=== PATIENT | male | born 1950 | race Caucasian/White ===

== ENCOUNTER 2017-03-05 15:23 | Inpatient (IN) | payer OTHER ==
[~2017-03-05] VITALS: Ht 180.3 cm; Wt 115.0 kg
[~2017-03-05 15:23] MED LIST: BUPR-40; CIPR-173 PO; CLON1TAB3; DIPH2.5T73; ESCI10TA; LIRA18IN2; METF100097; NOR10T; OMEP20TA69; PIOG45TA8; ZOLP-158
[2017-03-05 17:00] LABS: Basophils # (auto) 0 uL; Eosinophils # (auto) 0.1 uL; Eosinophils % (auto) 1.1 % (0.0-7.0); Hematocrit 42.2 % (41.0-53.0); Hemoglobin 13.7 g/dL (13.5-17.5); Lymphocytes # (auto) 0.5 uL; Lymphocytes % (auto) 11.8 % (10.0-50.0); Mean Corpuscular Hgb Conc. 32.6 g/dL (32.0-36.0); Mean Corpuscular Volume 85.9 fL (80.0-100.0); Mean Platelet Volume 8.1 fL (6.9-10.8); Monocytes # (auto) 0.6 uL; Monocytes % (auto) 12.2 % (0.0-12.0); Neutrophils # (auto) 3.4 uL; Neutrophils % (auto) 73.9 % (37.0-80.0); Platelet Count (auto) 182 10^3/uL (140-450); Red Cell Distribution Width 15.1 % (11.8-14.3); White Blood Cell 4.6 10^3/uL (4.4-10.8)
[2017-03-05 17:19] LABS: Albumin 3.4 g/dL (3.4-5.0); Anion Gap 8 (5-15); Aspartate Aminotransferase 27 U/L (15-37); BUN/Creatinine Ratio 14.9; Blood Urea Nitrogen 14 mg/dL (7-18); Calcium 8.5 mg/dL (8.5-10.1); Carbon Dioxide 26 mmol/L (21-32); Chloride 103 mmol/L (98-107); GFR African American 103 mL/min; GFR Non-African American 85 mL/min; Glucose 147 mg/dL (74-106); Potassium 3.9 mmol/L (3.5-5.1); Sodium 137 mmol/L (136-145)
[2017-03-05 17:24] LABS: Alkaline Phosphatase 92 U/L (45-117); Bilirubin, Total 0.5 mg/dL (0.2-1.0); Total Protein 7.4 g/dL (6.4-8.2)
[2017-03-05] MEDS ORDERED: methylPREDNISolone SOD SUCC 125 MG/2 ML VL IV ONE (19:45)
[2017-03-05] MEDS ORDERED: IPRATROPIUM BROM 0.5 MG/2.5ML INH SOL NEB ONE (19:45)
[2017-03-05] MEDS ORDERED: SODIUM CHLORIDE 0.9% 1,000 ML IV ONE (19:45)
[2017-03-05] MEDS ORDERED: LEVOFLOXACIN 750MG 150 ML IV ONE (19:45)
[2017-03-05] MEDS ORDERED: ALBUTEROL SULF 2.5 MG/0.5ML(0.5%) NEB SOLN NEB ONE (19:45)
[2017-03-06] VITALS (8 sets, daily range): BP systolic 125–154; BP diastolic 59–82
[2017-03-06] MEDS ORDERED: DEXTROSE (50%) 50ML SYRG IV PRN (01:45)
[2017-03-06] MEDS ORDERED: ONDANSETRON HCL 4 MG/2 ML VIAL IV PRN (01:45)
[2017-03-06] MEDS ORDERED: methylPREDNISolone SOD SUCC 40 MG/ML VL IV SCH (01:45)
[2017-03-06] MEDS ORDERED: HYDROcodone-ACET 5/325MG TAB PO PRN (01:45)
[2017-03-06 02:22] LABS: BUN/Creatinine Ratio 15.7; Calcium 8.7 mg/dL (8.5-10.1); Potassium 4.5 mmol/L (3.5-5.1)
[2017-03-06 02:48] LABS: Lymphocytes % (auto) 8.2 % (10.0-50.0); Monocytes % (auto) 1.8 % (0.0-12.0); Neutrophils # (auto) 3.5 uL; Nucleated Red Blood Cells % 0.1 %; White Blood Cell 3.9 10^3/uL (4.4-10.8)
[2017-03-06 02:49] LABS: Basophils # (auto) 0 uL; Eosinophils # (auto) 0 uL; Hematocrit 42.1 % (41.0-53.0); Hemoglobin 13.7 g/dL (13.5-17.5); Lymphocytes # (auto) 0.3 uL; Mean Corpuscular Hemoglobin 28.3 pg (28.0-32.0); Mean Corpuscular Hgb Conc. 32.6 g/dL (32.0-36.0); Mean Platelet Volume 8.5 fL (6.9-10.8); Monocytes # (auto) 0.1 uL; Platelet Count (auto) 165 10^3/uL (140-450); Red Cell Distribution Width 15.1 % (11.8-14.3)
[2017-03-06 03:35] LABS: Urine Bilirubin Negative (Negative); Urine Blood Negative /uL (Negative); Urine Color Yellow (Yellow); Urine Glucose 4+ mg/dL (Normal); Urine Ketone 1+ (Negative); Urine Nitrite Negative (Negative); Urine RBC <1 /hpf (0 - 3); Urine Urobilinogen Normal (Negative)
[2017-03-06 04:20] LABS: B-Type Natriuretic Peptide 35.73 pg/mL (0-100)
[2017-03-06 04:26] LABS: Temperature: 21.6 C (20.0-25.0)
[2017-03-06] MEDS ORDERED: TRAZ100T2 PO (05:25)
[2017-03-06] MEDS ORDERED: ALBUAER3 IN (05:25)
[2017-03-06] MEDS ORDERED: MOME200A INH (05:25)
[2017-03-06] MEDS ORDERED: OME20T PO (05:25)
[2017-03-06] MEDS ORDERED: ALOG1TAB5 PO (05:25)
[2017-03-06] MEDS ORDERED: FLUT1SPR5 (05:25)
[2017-03-06] MEDS: ACETAMINOPHEN 500 MG TAB PO PRN ×2 (05:40→21:48)
[2017-03-06] MEDS: DOXYCYCLINE HYC 100MG/250ML 250 ML IV SCH ×2 (05:41→17:52)
[2017-03-06] MEDS ORDERED: INSU1.2I SC (05:51)
[2017-03-06] MEDS: InsuLIN REG 1unit/0.01ml Soln (100units/ml) SC SCH ×4 (06:54→21:59)
[2017-03-06] MEDS: ALBUTEROL SULF 2.5 MG/0.5ML(0.5%) NEB SOLN NEB SCH ×3 (06:56→18:40)
[2017-03-06] MEDS: IPRATROPIUM BROM 0.5 MG/2.5ML INH SOL NEB SCH ×3 (06:56→18:40)
[2017-03-06] MEDS: ACCU-CHEK COMFORT CURVE STRIP VI SCH ×4 (07:14→22:00)
[2017-03-06] MEDS ORDERED: THROAT LOZENGES(CEPASTAT) MT PRN (12:15)
[2017-03-06] MEDS: methylPREDNISolone SOD SUCC 40 MG/ML VL IV SCH ×2 (14:40→19:52)
[2017-03-06] MEDS: BUDESONIDE (INHALATION) 0.5 MG/2 ML NEB NEB SCH (18:40)
[2017-03-06] MEDS: ACETYLCYSTEINE 10 %(100MG/ML) SOL 4ML NEB SCH (18:41)
[2017-03-06] MEDS ORDERED: traZODone HCL 50 MG TAB PO SCH (22:00)
[2017-03-07] MEDS: IPRATROPIUM BROM 0.5 MG/2.5ML INH SOL NEB SCH ×3 (00:32→11:35)
[2017-03-07] MEDS: ACETYLCYSTEINE 10 %(100MG/ML) SOL 4ML NEB SCH ×3 (00:32→11:35)
[2017-03-07] MEDS: ALBUTEROL SULF 2.5 MG/0.5ML(0.5%) NEB SOLN NEB SCH ×3 (00:32→11:35)
[2017-03-07] MEDS: methylPREDNISolone SOD SUCC 40 MG/ML VL IV SCH ×3 (01:15→14:24)
[2017-03-07 04:59] VITALS: BP 105/52
[2017-03-07] MEDS: DOXYCYCLINE HYC 100MG/250ML 250 ML IV SCH (06:22)
[2017-03-07] MEDS: InsuLIN REG 1unit/0.01ml Soln (100units/ml) SC SCH ×2 (06:29→12:05)
[2017-03-07] MEDS: BUDESONIDE (INHALATION) 0.5 MG/2 ML NEB NEB SCH (06:35)
[2017-03-07] MEDS: ACCU-CHEK COMFORT CURVE STRIP VI SCH ×2 (06:55→12:05)
[2017-03-07 07:53] VITALS: BP 127/63
[2017-03-07 12:05] VITALS: BP 122/68
[2017-03-07] MEDS ORDERED: IPR002IS NEB (14:37)
[2017-03-07] MEDS ORDERED: CEPH-37 PO (14:37)
[2017-03-07] MEDS ORDERED: ALB5IS NEB (14:37)
== END 2017-03-07 17:30 | disposition home or self-care (01) | DRG 190 ==
LOC: ER 15:26 → OVERFLOW 15:27 → WEST WING 03-06 04:06
PROVIDERS: ADMIT Nurse Practitioner Family; ATTEND Nurse Practitioner Family
DX: J44.0 Chronic obstructive pulmonary disease with (acute) lower respiratory infection (principal); J18.1 Lobar pneumonia, unspecified organism; Z99.81 Dependence on supplemental oxygen; E66.2 Morbid (severe) obesity with alveolar hypoventilation; J44.1 Chronic obstructive pulmonary disease with (acute) exacerbation; E11.9 Type 2 diabetes mellitus without complications; F32.9 Major depressive disorder, single episode, unspecified; F41.9 Anxiety disorder, unspecified; J20.9 Acute bronchitis, unspecified; K21.9 Gastro-esophageal reflux disease without esophagitis; Z79.4 Long term (current) use of insulin; Z79.899 Other long term (current) drug therapy; Z87.442 Personal history of urinary calculi; Z79.84 Long term (current) use of oral hypoglycemic drugs
CPT/HCPCS: 36415; 71020; 80048; 80053; 81001; 82962; 83036; 83880; 84484; 85025; 87040; 87070; 87205; 93005; 94640; 96365; 96375; 96376; J1815; J1956; J3490

== ENCOUNTER 2019-02-26 12:20 | Inpatient (IN) | payer BC, MEDICARE ==
[~2019-02-26] VITALS: Ht 180.3 cm; Wt 115.2 kg
[~2019-02-26 12:20] MED LIST changes: +ALB5IS NEB; +ALOG1TAB5 PO; -BUPR-40; -CIPR-173 PO; -CLON1TAB3; +CLOTCRE3 EX; -DIPH2.5T73; -ESCI10TA; +FLUT1SPR5; +INSU1.2I SC; +IPR002IS NEB; -LIRA18IN2; -METF100097; +MOME200A INH; -NOR10T; +OME20T PO; -OMEP20TA69; -PIOG45TA8; +TRAZ100T3 PO; -ZOLP-158
[2019-02-26] MEDS ORDERED: cefTRIAXone 1GM/50ML D5W 50 ML IV ONE (13:15)
[2019-02-26 13:28] LABS: Basophils # (auto) 0 uL; Basophils % (auto) 0.7 % (0.0-2.0); Eosinophils # (auto) 0.1 uL; Eosinophils % (auto) 2.1 % (0.0-7.0); Hematocrit 45.3 % (41.0-53.0); Hemoglobin 15.1 g/dL (13.5-17.5); Lymphocytes # (auto) 0.9 uL; Lymphocytes % (auto) 15.5 % (10.0-50.0); Mean Corpuscular Hemoglobin 29.5 pg (28.0-32.0); Mean Corpuscular Hgb Conc. 33.4 g/dL (32.0-36.0); Mean Corpuscular Volume 88.4 fL (80.0-100.0); Monocytes # (auto) 0.8 uL; Monocytes % (auto) 13.7 % (0.0-12.0); Neutrophils # (auto) 3.8 uL; Nucleated Red Blood Cells % 0.1 %; Platelet Count (auto) 217 10^3/uL (140-450); Red Blood Cells 5.13 10^6/uL (4.5-5.90); White Blood Cell 5.6 10^3/uL (4.4-10.8)
[2019-02-26 13:47] LABS: Albumin 3.2 g/dL (3.4-5.0); Calcium 8.8 mg/dL (8.5-10.1); Potassium 4.2 mmol/L (3.5-5.1)
[2019-02-26 13:50] LABS: Bilirubin, Total 0.7 mg/dL (0.2-1.0); Total Protein 7.6 g/dL (6.4-8.2)
[2019-02-26] MEDS ORDERED: MORPHINE SULF INJ 2 MG/ML SYRINGE 1ML IV PRN ×2 (17:30)
[2019-02-26] MEDS ORDERED: ACETAMINOPHEN 500 MG TAB PO PRN (17:30)
[2019-02-26] MEDS ORDERED: ONDANSETRON HCL 4 MG/2 ML VIAL IV PRN (17:30)
[2019-02-26] MEDS ORDERED: HYDROcodone-ACET 5/325MG TAB PO PRN (17:30)
[2019-02-26] MEDS ORDERED: DEXTROSE (50%) 50ML SYRG IV PRN (17:30)
[2019-02-26] MEDS ORDERED: NITROGLYCERIN 0.4 MG SL TAB SL PRN (17:30)
[2019-02-26] MEDS: AZITHROMYCIN 500MG/ 250ML 250 ML IV SCH (18:31)
[2019-02-26] MEDS: ALBUTEROL SULF 2.5 MG/0.5ML(0.5%) NEB SOLN NEB SCH (18:44)
[2019-02-26] MEDS: BUDESONIDE (INHALATION) 0.5 MG/2 ML NEB NEB SCH (18:44)
[2019-02-26] MEDS: IPRATROPIUM BROM 0.5 MG/2.5ML INH SOL NEB SCH (18:44)
--- NOTE | 2019-02-26 18:46 | NUR ---
Respiratory note: AT BEDSIDE IN ER BED 14 FOR MED NEB TX. BS ARE COURSE WHEEZES IN RIGHT LUNG PERAZA DIMINISHED CLEAR ON LEFT. TX GIVEN VIA MASK. PT TOLERATING TX WELL. AT BEDSIDE.
[2019-02-26 19:27] VITALS: BP 131/70
[2019-02-26 21:10] VITALS: BP 137/61
--- NOTE | 2019-02-26 21:10 | NUR ---
Telemetry admit from ER KAREEN COLON admitted to Telemetry unit after SBAR received. Patient oriented to Liat Deng RN primary RN, unit, room, bed, and unit policies regarding patient care and visiting hours. Patient now on continuous telemetry monitoring, tele box # [id number] and telemetry reading on arrival to unit is SINUS RHYTHM. Patient placed on bedside oxygen, weighed by bedscale and encouraged to call if they need something. All questions and concerns addressed, patient verbalized understanding. Bed is in lowest locked position with bed rails up x2 and call light is within reach of the patient. Urinal is at the bedside.
--- NOTE | 2019-02-26 21:30 | NUR ---
Unable to obtains med reconciliation: Instructed patient to have bring in his list of medications sometime in the day for the nurse to record doses for the doctor. Patient verbalized understanding and is to notify to bring home med list tomorrow.
[2019-02-26 21:44] VITALS: BP 137/61
[2019-02-26] MEDS: GABAPENTIN 300 MG CAP PO SCH (21:54)
[2019-02-26] MEDS: ACCU-CHEK COMFORT CURVE STRIP VI SCH (21:54)
[2019-02-26] MEDS: InsuLIN REG 1unit/0.01ml Soln (100units/ml) SC SCH (21:56)
[2019-02-26] MEDS: guaiFENesin-CODEINE Liq 5 ML UD PO PRN (21:58)
--- NOTE | 2019-02-26 23:00 | NUR ---
Respiratory note: PLACED PT ON CPAP AT [id number]. PT ON SIZE M/L NASAL MASK.CONT POX AT BEDSIDE PER PROTOCOL. POX PROBE PLACE ON RIGHT INDEX FINGER, CPAP WATER CHAMBER FILLED TO MAX LINE. RT NAME AND PAGER ASSIGNMENT WRITTEN ON PTS ROOM BOARD. WILL CONTINUE TO MONITOR Q2H AND MORE AND NEEDED. ELVIRA VILLASENOR AWARE OF PLACEMENT.
--- NOTE | 2019-02-27 01:05 | NUR ---
Spoke with hospitalist regarding diet: Spoke with hospitalist beltran asking for a diet order for the patient. Hospitalist updated about patients diagnosis and situation. Ordered consistent Carb diet. To place orders.
[2019-02-27 04:53] VITALS: BP 109/48
[2019-02-27 05:50] LABS: Basophils # (auto) 0 uL; Basophils % (auto) 0.6 % (0.0-2.0); Eosinophils # (auto) 0.2 uL; Eosinophils % (auto) 4.1 % (0.0-7.0); Hematocrit 42.6 % (41.0-53.0); Hemoglobin 14.2 g/dL (13.5-17.5); Lymphocytes # (auto) 0.9 uL; Lymphocytes % (auto) 18.3 % (10.0-50.0); Mean Corpuscular Hemoglobin 29.5 pg (28.0-32.0); Mean Corpuscular Hgb Conc. 33.3 g/dL (32.0-36.0); Mean Corpuscular Volume 88.5 fL (80.0-100.0); Monocytes # (auto) 0.6 uL; Monocytes % (auto) 13.3 % (0.0-12.0); Neutrophils # (auto) 3.1 uL; Neutrophils % (auto) 63.7 % (37.0-80.0); Nucleated Red Blood Cells % 0.1 %; Platelet Count (auto) 197 10^3/uL (140-450); Red Blood Cells 4.81 10^6/uL (4.5-5.90); Red Cell Distribution Width 13.8 % (11.8-14.3); White Blood Cell 4.8 10^3/uL (4.4-10.8)
[2019-02-27] MEDS: guaiFENesin-CODEINE Liq 5 ML UD PO PRN (05:56)
[2019-02-27] MEDS: GABAPENTIN 300 MG CAP PO SCH ×3 (05:57→21:37)
[2019-02-27] MEDS: ALBUTEROL SULF 2.5 MG/0.5ML(0.5%) NEB SOLN NEB SCH ×3 (06:03→18:52)
[2019-02-27] MEDS: BUDESONIDE (INHALATION) 0.5 MG/2 ML NEB NEB SCH ×2 (06:03→18:52)
[2019-02-27] MEDS: IPRATROPIUM BROM 0.5 MG/2.5ML INH SOL NEB SCH ×3 (06:03→18:52)
--- NOTE | 2019-02-27 06:05 | NUR ---
Respiratory note: PATIENT WAS FOUND OFF CPAP AND ON ROOM AIR WITH SPO2 OF 94%. PATIENT STATED HE HAD JUST TAKEN HIMSELF OFF CPAP AND TOLERATED IT WELL THROUGHOUT THE NIGHT. PATIENT WILL WEAR AGAIN THIS EVENING. MED-NEB ADMINISTERED.
[2019-02-27 06:15] LABS: Potassium 4.5 mmol/L (3.5-5.1)
[2019-02-27] MEDS: ACCU-CHEK COMFORT CURVE STRIP VI SCH ×4 (06:15→21:40)
[2019-02-27] MEDS: InsuLIN REG 1unit/0.01ml Soln (100units/ml) SC SCH ×4 (06:21→21:39)
[2019-02-27 06:27] LABS: BUN/Creatinine Ratio 22.2; Calcium 8.8 mg/dL (8.5-10.1)
[2019-02-27 06:32] LABS: Urine Bacteria NONE SEEN /hpf (None Seen); Urine Blood Negative /uL (Negative); Urine Specific Gravity 1.022 (1.001-1.035); Urine WBC 4 /hpf (0 - 3)
[2019-02-27 08:00] VITALS: BP 102/45
--- NOTE | 2019-02-27 10:30 | NUR ---
WOUND CARE NOTE: WOUND CONSULT ORDERED FOR PATIENT FOR INCISIONS TO BACK X 2. WOUND PHOTOS TAKEN AT TIME OF ADMIT BY BEDSIDE NURSE FOR REFERENCE. PATIENT ADMITTED TO [facility] WITH DIAGNOSIS OF ACUTE HYPOXIC RESPIRATORY FAILURE. CURRENT NGA SCORE IS 20. PATIENT HAD RECENT SURGERY TO HIS BACK APPROXIMATELY ONE WEEK AGO. HE HAS 2 WELL APPROXIMATED, STAPLED SURGICAL INCISIONS TO HIS BACK. GOOD EPITHELIAL RIDGE NOTED TO BOTH WOUNDS. OK TO LEAVE OPEN TO AIR. NO NEED FOR WOUND CARE MONITORING IS NEEDED AT THIS TIME. PATIENT TO FOLLOW UP WITH HIS SURGEON POST DISCHARGE.
[2019-02-27] MEDS: cefTRIAXone 1GM/50ML D5W 50 ML IV SCH (10:36)
[2019-02-27] MEDS: PANTOPRAZOLE 40 MG TAB PO SCH (10:36)
[2019-02-27] MEDS: AZITHROMYCIN 500MG/ 250ML 250 ML IV SCH (11:25)
[2019-02-27 12:00] VITALS: BP 128/65
[2019-02-27] MEDS ORDERED: GABA300C10 PO (13:02)
[2019-02-27] MEDS ORDERED: ASPI81CH43 GT (13:02)
[2019-02-27] MEDS ORDERED: predniSONE 20 MG TAB PO ONE (13:15)
[2019-02-27] MEDS ORDERED: FUROSEMIDE 40 MG/4 ML VIAL IV ONE (13:15)
[2019-02-27] MEDS ORDERED: POTASSIUM CHL 20 Meq TABLET PO ONE (13:15)
[2019-02-27 17:04] VITALS: BP 116/58
--- NOTE | 2019-02-27 17:22 | NUR ---
PT IS NOT RECEIVING ALL SCHEDULED MEDICATIONS AND IV ABX DUE TO LEAVING THE FLOOR CONTINUOUSLY TO SMOKE. Addendum: 02/27/19 at 1724 by ALEX BROWER RN ABOVE NOTE WRITTEN ON WRONG PATIENT
--- NOTE | 2019-02-27 19:15 | NUR ---
DR JIM WATTS, UROLOGIST CONSULTED D/T S/P SPINAL CORD STIMULATOR PLACEMENT FOR INCONTINENCE. PER MD, PT SHOULD NEVER HAVE MRI. REPORT PASSED ON TO ONCOMING NURSE.
--- NOTE | 2019-02-27 19:45 | NUR ---
Opening Shift Note Assumed care of patient, awake and alert oriented x4. No S/S of distress/SOB or pain noted. Bed is in lowest locked position with bed rails up x2 and call light is within reach of the patient. Instructed on POC and to call for assist PRN.
[2019-02-28 04:45] VITALS: BP 114/63
[2019-02-28] MEDS: GABAPENTIN 300 MG CAP PO SCH ×3 (06:39→22:00)
[2019-02-28] MEDS: ACCU-CHEK COMFORT CURVE STRIP VI SCH ×4 (06:41→22:00)
[2019-02-28] MEDS: InsuLIN REG 1unit/0.01ml Soln (100units/ml) SC SCH ×4 (06:48→22:00)
--- NOTE | 2019-02-28 06:50 | NUR ---
RESPIRATORY CULTURE SENT TO LAB
[2019-02-28] MEDS: ALBUTEROL SULF 2.5 MG/0.5ML(0.5%) NEB SOLN NEB SCH ×3 (07:33→18:45)
[2019-02-28] MEDS: BUDESONIDE (INHALATION) 0.5 MG/2 ML NEB NEB SCH ×2 (07:34→18:45)
[2019-02-28] MEDS: IPRATROPIUM BROM 0.5 MG/2.5ML INH SOL NEB SCH ×3 (07:34→18:45)
[2019-02-28 09:00] VITALS: BP 128/61
[2019-02-28] MEDS: cefTRIAXone 1GM/50ML D5W 50 ML IV SCH (09:23)
[2019-02-28] MEDS: FUROSEMIDE 40 MG/4 ML VIAL IV SCH (09:52)
[2019-02-28] MEDS: AZITHROMYCIN 500MG/ 250ML 250 ML IV SCH (09:53)
[2019-02-28] MEDS: POTASSIUM CHL 20 Meq TABLET PO SCH (09:53)
[2019-02-28] MEDS: PANTOPRAZOLE 40 MG TAB PO SCH (09:53)
[2019-02-28] MEDS: predniSONE 20 MG TAB PO SCH (09:53)
[2019-02-28] MEDS ORDERED: ENOXAPARIN SOD 40 MG/0.4 ML SYRINGE SC ONE (11:15)
[2019-02-28 12:05] LABS: Basophils # (auto) 0 uL; Basophils % (auto) 0.3 % (0.0-2.0); Eosinophils # (auto) 0.1 uL; Eosinophils % (auto) 0.8 % (0.0-7.0); Hematocrit 44.2 % (41.0-53.0); Hemoglobin 14.9 g/dL (13.5-17.5); Lymphocytes # (auto) 0.7 uL; Lymphocytes % (auto) 9.3 % (10.0-50.0); Mean Corpuscular Hemoglobin 29.4 pg (28.0-32.0); Mean Corpuscular Hgb Conc. 33.6 g/dL (32.0-36.0); Mean Corpuscular Volume 87.5 fL (80.0-100.0); Monocytes # (auto) 0.6 uL; Monocytes % (auto) 8.7 % (0.0-12.0); Neutrophils # (auto) 5.9 uL; Neutrophils % (auto) 80.9 % (37.0-80.0); Nucleated Red Blood Cells % 0.1 %; Platelet Count (auto) 223 10^3/uL (140-450); Red Blood Cells 5.05 10^6/uL (4.5-5.90); Red Cell Distribution Width 13.4 % (11.8-14.3); White Blood Cell 7.3 10^3/uL (4.4-10.8)
[2019-02-28 12:30] LABS: BUN/Creatinine Ratio 25.5; Calcium 9.3 mg/dL (8.5-10.1); Potassium 4.1 mmol/L (3.5-5.1)
[2019-02-28 13:00] VITALS: BP 125/60
[2019-02-28] MEDS: guaiFENesin-DM 100/10mg/5ml SYR PO SCH ×3 (14:02→23:11)
[2019-02-28 17:00] VITALS: BP 125/64
--- NOTE | 2019-02-28 17:49 | NUR ---
LUIS FERNANDO REMOVED FROM BACK, NO PROBLEMS NOTED. WOUND CLEANSED WITH NSS, DRY DRESSING APPLIED.
[2019-02-28] MEDS: ACETYLCYSTEINE 10 %(100MG/ML) SOL 4ML NEB SCH (18:45)
[2019-02-28 21:48] VITALS: BP 106/73
[2019-03-01 05:10] VITALS: BP 113/59
[2019-03-01] MEDS: ACETYLCYSTEINE 10 %(100MG/ML) SOL 4ML NEB SCH ×3 (06:00→18:45)
[2019-03-01] MEDS: InsuLIN REG 1unit/0.01ml Soln (100units/ml) SC SCH ×4 (06:14→22:27)
[2019-03-01] MEDS: guaiFENesin-DM 100/10mg/5ml SYR PO SCH ×4 (06:15→17:51)
[2019-03-01] MEDS: GABAPENTIN 300 MG CAP PO SCH ×3 (06:15→22:27)
[2019-03-01] MEDS: ALBUTEROL SULF 2.5 MG/0.5ML(0.5%) NEB SOLN NEB SCH ×3 (06:20→18:44)
[2019-03-01] MEDS: IPRATROPIUM BROM 0.5 MG/2.5ML INH SOL NEB SCH ×3 (06:20→18:44)
--- NOTE | 2019-03-01 06:20 | NUR ---
Respiratory note: PT TAKEN OFF CPAP MACHINE AT THIS TIME . PLACED ON 2L NC. SCHEDULED MEDNEB TX GIVEN. NO ADVERSE REACTIONS NOTED POST TX. NO DISTRESS NOTED. RN AT BESIDE.
[2019-03-01] MEDS: ACCU-CHEK COMFORT CURVE STRIP VI SCH ×4 (06:35→22:27)
[2019-03-01 06:37] LABS: Basophils # (auto) 0 uL; Basophils % (auto) 0.6 % (0.0-2.0); Eosinophils # (auto) 0.2 uL; Eosinophils % (auto) 2.3 % (0.0-7.0); Hematocrit 43.8 % (41.0-53.0); Hemoglobin 14.9 g/dL (13.5-17.5); Lymphocytes # (auto) 1.2 uL; Lymphocytes % (auto) 18.4 % (10.0-50.0); Mean Corpuscular Hgb Conc. 34.1 g/dL (32.0-36.0); Mean Corpuscular Volume 87.9 fL (80.0-100.0); Monocytes # (auto) 0.6 uL; Monocytes % (auto) 8.9 % (0.0-12.0); Neutrophils # (auto) 4.7 uL; Neutrophils % (auto) 69.8 % (37.0-80.0); Nucleated Red Blood Cells % 0.1 %; Platelet Count (auto) 236 10^3/uL (140-450); Red Blood Cells 4.98 10^6/uL (4.5-5.90); Red Cell Distribution Width 13.4 % (11.8-14.3); White Blood Cell 6.7 10^3/uL (4.4-10.8)
[2019-03-01 06:51] LABS: BUN/Creatinine Ratio 27.6; Calcium 9.4 mg/dL (8.5-10.1); Potassium 4.5 mmol/L (3.5-5.1)
[2019-03-01 09:00] VITALS: BP 132/59
[2019-03-01] MEDS: cefTRIAXone 1GM/50ML D5W 50 ML IV SCH (09:02)
[2019-03-01] MEDS: predniSONE 20 MG TAB PO SCH (09:03)
[2019-03-01] MEDS: POTASSIUM CHL 20 Meq TABLET PO SCH (09:03)
[2019-03-01] MEDS: ENOXAPARIN SOD 40 MG/0.4 ML SYRINGE SC SCH (09:03)
[2019-03-01] MEDS: PANTOPRAZOLE 40 MG TAB PO SCH (09:03)
[2019-03-01] MEDS: FUROSEMIDE 40 MG/4 ML VIAL IV SCH (09:03)
[2019-03-01] MEDS: AZITHROMYCIN 500MG/ 250ML 250 ML IV SCH (10:00)
--- NOTE | 2019-03-01 11:47 | NUR ---
Nutrition Assessment Notes please see attached link for complete assessment Est. Needs ABW 96 [id number] kcal (20-23 kcal/kgBW), 96-105 gms pro (1.0-1.1 gms/kgBW). Will continue to monitor pertinent labs and reassess nutrient need prn Addendum: 03/01/19 at [address] Amended: Links added.
[2019-03-01] MEDS: BUDESONIDE (INHALATION) 0.5 MG/2 ML NEB NEB SCH ×2 (11:56→18:45)
[2019-03-01 13:00] VITALS: BP 13/74
--- NOTE | 2019-03-01 15:52 | NUR ---
assessment Patient has no post discharge needs identified as of now. Addendum: 03/01/19 at 1552 by Natividad APARICIO Amended: Links added.
[2019-03-01 17:30] VITALS: BP 136/68
--- NOTE | 2019-03-01 19:36 | NUR ---
Opening Shift Note Assumed care of patient, awake and alert x 4. No S/S of distress/SOB or pain. Bed is in lowest position and locked. Call light within reach. Board updated. Tele box number matches monitor and leads are in correct placement. Instructed on POC and to call for assist PRN, will continue to monitor for changes Q1hr and PRN.
--- NOTE | 2019-03-01 20:32 | NUR ---
IV removal IV to right forearm discontinued after it was found occluded on assessment. Discontinued with clean technique, catheter fully intact. Pressure dressing applied to site. Patient tolerated well.
[2019-03-01 22:00] VITALS: BP 126/72
--- NOTE | 2019-03-01 22:48 | NUR ---
IV insertion IV access obtained, via clean technique by inserting a 22 gauge catheter into a vein in the right forearm after 2 attempts. IV secured properly. No trauma to site. Patient tolerated well.
[2019-03-02] MEDS: guaiFENesin-DM 100/10mg/5ml SYR PO SCH ×5 (02:31→18:00)
[2019-03-02 05:00] VITALS: BP 121/67
[2019-03-02] MEDS: GABAPENTIN 300 MG CAP PO SCH ×3 (06:40→22:09)
[2019-03-02] MEDS: InsuLIN REG 1unit/0.01ml Soln (100units/ml) SC SCH ×4 (06:40→22:09)
[2019-03-02] MEDS: ACCU-CHEK COMFORT CURVE STRIP VI SCH ×4 (06:41→22:09)
--- NOTE | 2019-03-02 06:58 | NUR ---
Respiratory note: TOOK PT OFF CPAP, PLACED ON 2L/M NC. ADMINISTERED MEDNEB TX, PT TOLERATED WELL, NO ADVERSE REACTIONS NOTED. PT BACK ON 2L/M NC, HR 58, RR 16, POX 98%. NO S/S OF RESPIRATORY DISTRESS NOTED. WILL RETURN FOR NEXT SCHEDULED TX.
[2019-03-02] MEDS: BUDESONIDE (INHALATION) 0.5 MG/2 ML NEB NEB SCH ×2 (06:59→18:41)
[2019-03-02] MEDS: ALBUTEROL SULF 2.5 MG/0.5ML(0.5%) NEB SOLN NEB SCH ×3 (07:00→18:40)
[2019-03-02] MEDS: IPRATROPIUM BROM 0.5 MG/2.5ML INH SOL NEB SCH ×3 (07:00→18:40)
[2019-03-02] MEDS: ACETYLCYSTEINE 10 %(100MG/ML) SOL 4ML NEB SCH ×3 (07:00→18:40)
[2019-03-02 08:30] VITALS: BP 138/65
[2019-03-02] MEDS: ENOXAPARIN SOD 40 MG/0.4 ML SYRINGE SC SCH (09:02)
[2019-03-02] MEDS: FUROSEMIDE 40 MG/4 ML VIAL IV SCH (09:02)
[2019-03-02] MEDS: predniSONE 20 MG TAB PO SCH (09:03)
[2019-03-02] MEDS: cefTRIAXone 1GM/50ML D5W 50 ML IV SCH (09:03)
[2019-03-02] MEDS: POTASSIUM CHL 20 Meq TABLET PO SCH (09:03)
[2019-03-02] MEDS: PANTOPRAZOLE 40 MG TAB PO SCH (09:03)
[2019-03-02] MEDS: AZITHROMYCIN 500MG/ 250ML 250 ML IV SCH (09:03)
[2019-03-02 09:05] VITALS: BP 121/67
[2019-03-02 13:00] VITALS: BP 124/71
--- NOTE | 2019-03-02 16:35 | NUR ---
Midline Placement: Patient educated on need for midline placement. All risks and benefits explained and all questions and concerns addresses prior to procedure. 18g/10cm midline inserted via left basilic vein using Ultrasound. Sterile technique utilized. Blood return obtained from lumen and flushed easily with NS using proper technique. Midline secured with saline lock; biodisc and occlusive dressing applied. Primary RN notified. Midline lot #[id number]
[2019-03-02] MEDS ORDERED: IOHEXOL 350 MG/ML 100ML IJ ONE (16:40)
[2019-03-02 17:15] VITALS: BP 132/70
[2019-03-02 22:00] VITALS: BP 120/74
[2019-03-03] MEDS: guaiFENesin-DM 100/10mg/5ml SYR PO SCH ×6 (02:00→18:00)
--- NOTE | 2019-03-03 02:05 | NUR ---
Patient refused Robitussin-DM because he "does not need it right now." Will offer again at 0600.
[2019-03-03 05:52] VITALS: BP 124/68
[2019-03-03] MEDS: BUDESONIDE (INHALATION) 0.5 MG/2 ML NEB NEB SCH ×2 (06:00→18:56)
[2019-03-03] MEDS: ALBUTEROL SULF 2.5 MG/0.5ML(0.5%) NEB SOLN NEB SCH ×3 (06:00→18:56)
[2019-03-03] MEDS: ACETYLCYSTEINE 10 %(100MG/ML) SOL 4ML NEB SCH ×3 (06:00→18:58)
[2019-03-03] MEDS: IPRATROPIUM BROM 0.5 MG/2.5ML INH SOL NEB SCH ×3 (06:00→18:57)
[2019-03-03] MEDS: GABAPENTIN 300 MG CAP PO SCH ×3 (06:06→22:05)
[2019-03-03] MEDS: ACCU-CHEK COMFORT CURVE STRIP VI SCH ×4 (06:06→22:05)
[2019-03-03] MEDS: InsuLIN REG 1unit/0.01ml Soln (100units/ml) SC SCH ×4 (06:06→22:26)
[2019-03-03 08:30] VITALS: BP 121/69
[2019-03-03] MEDS: ENOXAPARIN SOD 40 MG/0.4 ML SYRINGE SC SCH (09:05)
[2019-03-03] MEDS: FUROSEMIDE 40 MG/4 ML VIAL IV SCH (09:06)
[2019-03-03] MEDS: POTASSIUM CHL 20 Meq TABLET PO SCH (09:06)
[2019-03-03] MEDS: PANTOPRAZOLE 40 MG TAB PO SCH (09:06)
[2019-03-03] MEDS: predniSONE 20 MG TAB PO SCH (09:06)
[2019-03-03] MEDS: cefTRIAXone 1GM/50ML D5W 50 ML IV SCH (09:07)
[2019-03-03] MEDS: AZITHROMYCIN 500MG/ 250ML 250 ML IV SCH (09:07)
[2019-03-03 13:10] VITALS: BP 130/62
[2019-03-03 16:45] VITALS: BP 144/65
--- NOTE | 2019-03-03 19:25 | NUR ---
Opening Shift Note Assumed care of patient, awake and alert. No S/S of distress/SOB or pain. Bed in lowest locked position, side rails up x2, call light within reach. Instructed on POC and to call for assist PRN, will continue to monitor for changes Q1hr and PRN.
[2019-03-03 22:00] VITALS: BP 106/67
[2019-03-04] MEDS: guaiFENesin-DM 100/10mg/5ml SYR PO SCH ×5 (01:57→14:00)
--- NOTE | 2019-03-04 01:58 | NUR ---
Patient refusing ordered Robitussin at this time, states, "I don't need it now." Will offer medication again at ordered time. Will continue to monitor.
[2019-03-04 05:00] VITALS: BP 114/66
--- NOTE | 2019-03-04 06:30 | NUR ---
Spoke with Radha MENDOZA regarding patient's order for ABG's. Patient currently on bipap machine, Radha stated she would obtain ABGs after patient had been removed from bipap. Will make dayshift RN aware and continue to monitor patient.
[2019-03-04 06:44] LABS: Basophils # (auto) 0 uL; Basophils % (auto) 0.4 % (0.0-2.0); Eosinophils # (auto) 0.1 uL; Eosinophils % (auto) 1.8 % (0.0-7.0); Hematocrit 42.7 % (41.0-53.0); Hemoglobin 14.3 g/dL (13.5-17.5); Lymphocytes # (auto) 1.6 uL; Lymphocytes % (auto) 19.7 % (10.0-50.0); Mean Corpuscular Hemoglobin 29.2 pg (28.0-32.0); Mean Corpuscular Hgb Conc. 33.4 g/dL (32.0-36.0); Mean Corpuscular Volume 87.3 fL (80.0-100.0); Monocytes # (auto) 0.5 uL; Monocytes % (auto) 6.8 % (0.0-12.0); Neutrophils # (auto) 5.7 uL; Neutrophils % (auto) 71.3 % (37.0-80.0); Nucleated Red Blood Cells % 0.1 %; Platelet Count (auto) 224 10^3/uL (140-450); Red Blood Cells 4.89 10^6/uL (4.5-5.90); Red Cell Distribution Width 13.4 % (11.8-14.3)
[2019-03-04] MEDS: IPRATROPIUM BROM 0.5 MG/2.5ML INH SOL NEB SCH ×2 (06:51→11:38)
[2019-03-04] MEDS: ACETYLCYSTEINE 10 %(100MG/ML) SOL 4ML NEB SCH ×2 (06:51→11:38)
[2019-03-04] MEDS: BUDESONIDE (INHALATION) 0.5 MG/2 ML NEB NEB SCH (06:51)
[2019-03-04] MEDS: ALBUTEROL SULF 2.5 MG/0.5ML(0.5%) NEB SOLN NEB SCH ×2 (06:51→11:38)
[2019-03-04 06:57] LABS: Potassium 3.9 mmol/L (3.5-5.1)
[2019-03-04] MEDS: GABAPENTIN 300 MG CAP PO SCH ×2 (07:01→14:12)
[2019-03-04] MEDS: ACCU-CHEK COMFORT CURVE STRIP VI SCH ×2 (07:01→11:30)
[2019-03-04] MEDS: InsuLIN REG 1unit/0.01ml Soln (100units/ml) SC SCH ×2 (07:12→12:28)
[2019-03-04 07:24] LABS: Albumin 3.1 g/dL (3.4-5.0); BUN/Creatinine Ratio 29.8; Bilirubin, Total 0.4 mg/dL (0.2-1.0); Calcium 9.7 mg/dL (8.5-10.1); Magnesium 2.3 mg/dL (1.6-2.6); Phosphorus 3.7 mg/dL (2.5-4.90); Total Protein 7.1 g/dL (6.4-8.2)
--- NOTE | 2019-03-04 07:25 | NUR ---
Closing Note Patient lying in bed, awake and alert. Bed in lowest locked position, side rails up x2, call light within reach. No s/s of distress. Care endorsed to dayshift RN.
[2019-03-04 09:30] VITALS: BP 136/79
[2019-03-04] MEDS: cefTRIAXone 1GM/50ML D5W 50 ML IV SCH (10:48)
[2019-03-04] MEDS: AZITHROMYCIN 500MG/ 250ML 250 ML IV SCH (10:48)
[2019-03-04] MEDS: FUROSEMIDE 40 MG/4 ML VIAL IV SCH (10:48)
[2019-03-04] MEDS: predniSONE 20 MG TAB PO SCH (10:49)
[2019-03-04] MEDS: POTASSIUM CHL 20 Meq TABLET PO SCH (10:49)
[2019-03-04] MEDS: PANTOPRAZOLE 40 MG TAB PO SCH (10:49)
[2019-03-04] MEDS: ENOXAPARIN SOD 40 MG/0.4 ML SYRINGE SC SCH (10:50)
[2019-03-04 13:00] VITALS: BP 109/73
--- NOTE | 2019-03-04 14:15 | NUR ---
Nutrition Follow-up Notes Wt.: 115.2 kg as of 03/03/19 Pt's asleep, no immediate family member at bedside during rounds this morning. Pt's no signs of distress noted earlier, currently on Consistent Standard Carb: 60 gms/meal diet with adequate PO intake aeb 95% ave. consumed meals (x6) in last 2.5 days. Noted pt's for active Pulmonary consult. Est. Needs ABW 96 [id number] kcal (20-23 kcal/kgBW), 96-105 gms pro (1.0-1.1 gms/kgBW). Will continue to monitor pertinent labs and reassess nutrient need prn Labs: Gluc 191 H, BUN 28 H, Alb 3.1 L. Skin: Sen scale 22, low risk, pt's lower medial back incision dry and intact per blockman. Pls refer to latest government affairs director's notes for further details re: tx plan. GI: Pt had 2x BM yesterday per blockman. PES: Altered nutrition related lab values r/t current/chronic medical condition aeb hyperglycemia, mild hypoalb, elev BUN Obesity r/t food intake more than body requirement aeb 147% IBW, BMI 35.4 kg/m2 and increased body adiposity Will continue to monitor PO intake, skin status, pertinent labs and weight trend. F/u in 3 to 5 days. Rec.: 1.) Continue close supervision during meals. 2.) If Albumin continues trending down, consider Prostat 1 pkt BID. 3.) Consider daily MVI with minerals and Asc acid 500 mgs BID prn. 4.) Refer pt to CDE/RD for further nutrition education and weight monitoring upon discharge. 5.) Continue current plan of care.
[2019-03-04] MEDS ORDERED: [UNRECOGNIZED DRUG - CODE] PO (14:52)
[2019-03-04] MEDS ORDERED: ASPI81CH59 PO (14:52)
[2019-03-04] MEDS ORDERED: TIOTCAP IN (14:52)
[2019-03-04] MEDS ORDERED: GABA300C10 PO (14:52)
[2019-03-04] MEDS ORDERED: ALBU108A5 IN (14:52)
[2019-03-04] MEDS ORDERED: POTA-220 PO (14:52)
[2019-03-04] MEDS ORDERED: PANT40T PO (14:52)
[2019-03-04] MEDS ORDERED: FURO1TAB31 PO (14:52)
[2019-03-04] MEDS ORDERED: BUDE0.253 IN (14:52)
[2019-03-04] MEDS ORDERED: AZIT500T66 PO (14:52)
--- NOTE | 2019-03-04 16:02 | NUR ---
DISCHARGE NOTE PATIENT ALERT AND ORIENTED X4 ALL DISCHARGE INSTRUCTIONS GIVEN ALL QUESTIONS AND CONCERNED ADDRESSED AND ANSWERED PATIENT VERBALIZED UNDERSTANDING. MIDLINE REMOVED CATHETER INTACT PRESSURE DRESSING APPLIED PATIENT TOLERATED WELL. TELE BOX REMOVED CLEANED AND SENT TO ICU. PATIENT DENIES ALL PAIN SOB AND DISTRESS OXYGEN SAT96% ON ROOM AIR. PATIENT AMBULATED TO PERSONAL VEHICLE USING A STEADY GAIT WITH AND DAUGHTER
== END 2019-03-04 16:00 | disposition home or self-care (01) | DRG 291 ==
LOC: ER 12:23 → TELE 12:24 → TELE-CENTR 21:10
PROVIDERS: ADMIT Nurse Practitioner Acute Care; ATTEND Internal Medicine Nephrology
PROC: 5A09357 Assistance with Respiratory Ventilation, Less than 24 Consecutive Hours, Continuous Positive Airway Pressure (ICD-10-PCS; principal; 2019-02-26)
PROC: 5A09357 Assistance with Respiratory Ventilation, Less than 24 Consecutive Hours, Continuous Positive Airway Pressure (ICD-10-PCS; 2019-02-27)
PROC: 5A09357 Assistance with Respiratory Ventilation, Less than 24 Consecutive Hours, Continuous Positive Airway Pressure (ICD-10-PCS; 2019-02-28)
PROC: 5A09357 Assistance with Respiratory Ventilation, Less than 24 Consecutive Hours, Continuous Positive Airway Pressure (ICD-10-PCS; 2019-03-02)
PROC: 5A09357 Assistance with Respiratory Ventilation, Less than 24 Consecutive Hours, Continuous Positive Airway Pressure (ICD-10-PCS; 2019-03-03)
PROC: 5A09357 Assistance with Respiratory Ventilation, Less than 24 Consecutive Hours, Continuous Positive Airway Pressure (ICD-10-PCS; 2019-03-04)
DX: I11.0 Hypertensive heart disease with heart failure (principal); I50.31 Acute diastolic (congestive) heart failure; J18.1 Lobar pneumonia, unspecified organism; J96.21 Acute and chronic respiratory failure with hypoxia; J44.1 Chronic obstructive pulmonary disease with (acute) exacerbation; J44.0 Chronic obstructive pulmonary disease with (acute) lower respiratory infection; J20.9 Acute bronchitis, unspecified; I25.10 Atherosclerotic heart disease of native coronary artery without angina pectoris; E11.40 Type 2 diabetes mellitus with diabetic neuropathy, unspecified; E66.9 Obesity, unspecified; E88.09 Other disorders of plasma-protein metabolism, not elsewhere classified; K21.9 Gastro-esophageal reflux disease without esophagitis; F32.9 Major depressive disorder, single episode, unspecified; F41.9 Anxiety disorder, unspecified; Z91.81 History of falling; Z68.35 Body mass index [BMI] 35.0-35.9, adult; Z79.4 Long term (current) use of insulin; Z87.01 Personal history of pneumonia (recurrent); Z87.442 Personal history of urinary calculi; Z79.82 Long term (current) use of aspirin; Z79.899 Other long term (current) drug therapy; Z87.891 Personal history of nicotine dependence
CPT/HCPCS: 36415; 71045; 71275; 80048; 80053; 81001; 82962; 83036; 83605; 83735; 83880; 84100; 84484; 85025; 87040; 87070; 87205; 87804; 93005; 93306; 93926; 94640; 94660; 96365; 96366; 96375; 99291; G0378; J0696; J1815

== ENCOUNTER 2021-06-15 05:09 | Inpatient (IN) | payer MEDICARE, BC ==
[~2021-06-15] VITALS: Ht 180.3 cm; Wt 119.0 kg
[~2021-06-15 05:09] MED LIST changes: -ALB5IS NEB; +ALBU108A5 IN; -ALOG1TAB5 PO; +ASPI81CH59 PO; +AZIT500T66 PO; +BUDE0.253 IN; -CLOTCRE3 EX; -FLUT1SPR5; +FURO1TAB31 PO; +GABA300C10 PO; -INSU1.2I SC; -IPR002IS NEB; -MOME200A INH; -OME20T PO; +PANT40T PO; +POTA-220 PO; +TIOTCAP IN; -TRAZ100T3 PO; +[UNRECOGNIZED DRUG - CODE] PO
[2021-06-15 06:23] LABS: Basophils # (auto) 0 10 ^3/uL (0-0.2); Basophils % (auto) 0.6 % (0.0-2.0); Eosinophils # (auto) 0.2 10 ^3/uL (0-0.8); Eosinophils % (auto) 3.3 % (0.0-7.0); Hematocrit 42.1 % (41.0-53.0); Hemoglobin 14.3 g/dL (13.5-17.5); Lymphocytes % (auto) 20.5 % (10.0-50.0); Mean Corpuscular Hemoglobin 30.6 pg (28.0-32.0); Mean Corpuscular Hgb Conc. 34.1 g/dL (32.0-36.0); Mean Corpuscular Volume 89.8 fL (80.0-100.0); Monocytes # (auto) 0.4 10 ^3/uL (0-1.3); Monocytes % (auto) 8.8 % (0.0-12.0); Neutrophils # (auto) 3.3 10 ^3/uL (1.6-8.6); Neutrophils % (auto) 66.8 % (37.0-80.0); Red Blood Cells 4.69 10^6/uL (4.5-5.90); Red Cell Distribution Width 13.8 % (11.8-14.3); White Blood Cell 4.9 10^3/uL (4.4-10.8)
[2021-06-15 06:44] LABS: Albumin 3.3 g/dL (3.4-5.0); BUN/Creatinine Ratio 14.6; Calcium 9.2 mg/dL (8.5-10.1); Magnesium 2.3 mg/dL (1.6-2.6); Potassium 4.1 mmol/L (3.5-5.1)
[2021-06-15 06:46] LABS: Bilirubin, Total 0.5 mg/dL (0.2-1.0); Total Protein 6.8 g/dL (6.4-8.2)
[2021-06-15] MEDS ORDERED: MORPHINE SULFATE 4 MG/ML SYR/VIAL IV ONE (07:15)
[2021-06-15] MEDS ORDERED: ONDANSETRON HCL 4 MG/2 ML VIAL IV ONE (07:15)
[2021-06-15] MEDS ORDERED: KETOROLAC TROMETH 30 MG/ML 1ML VIAL IV ONE (07:45)
[2021-06-15] MEDS ORDERED: NITROGLYCERIN 0.4 MG SL TAB SL PRN (10:45)
[2021-06-15] MEDS ORDERED: MORPHINE SULFATE INJECTION 2 MG/ML SYRG IV PRN ×2 (10:45→11:15)
[2021-06-15] MEDS ORDERED: ACETAMINOPHEN 325 MG TAB PO PRN (11:15)
[2021-06-15] MEDS ORDERED: ONDANSETRON HCL 4 MG/2 ML VIAL IV PRN (11:15)
[2021-06-15] MEDS ORDERED: levoFLOXacin 750MG 150 ML IV ONE (11:15)
[2021-06-15] MEDS ORDERED: LORazepam 0.5 MG TAB PO PRN (11:15)
[2021-06-15] MEDS ORDERED: MONTELUKAST SODIUM 10 MG TAB PO ONE (11:15)
[2021-06-15] MEDS ORDERED: PROMETHAZINE-DM 5 ML ORAL SYRUP PO PRN (11:15)
[2021-06-15] MEDS ORDERED: BENAZEPRIL HCL 10 MG TAB PO ONE (11:15)
[2021-06-15] MEDS ORDERED: hydrALAZINE HCL 20 MG/ML VL IV PRN (11:15)
[2021-06-15] MEDS ORDERED: BUDESONIDE (INHALATION) 0.5 MG/2 ML NEB NEB ONE (11:15)
[2021-06-15] MEDS ORDERED: DEXTROSE (50%) 50ML SYRG IV PRN (11:15)
[2021-06-15] MEDS ORDERED: PANTOPRAZOLE 40 MG/10 ML VIAL INJ IV ONE (11:15)
[2021-06-15] MEDS ORDERED: IPRATROPIUM BROM 0.5 MG/2.5ML INH SOL NEB ONE (11:15)
[2021-06-15] MEDS ORDERED: methylPREDNISolone SOD SUCC 125 MG/2 ML VL IV ONE (11:15)
[2021-06-15] MEDS ORDERED: HYDROcodone-ACET 5/325MG TAB PO ONE (11:15)
[2021-06-15] MEDS: ACCU-CHEK COMFORT CURVE STRIP VI SCH ×3 (11:30→21:39)
[2021-06-15] MEDS: InsuLIN REG 1unit/0.01ml Soln (100units/ml) SC SCH ×3 (11:30→21:40)
[2021-06-15 11:35] LABS: Magnesium 2.2 mg/dL (1.6-2.6); Phosphorus 3.5 mg/dL (2.5-4.90)
[2021-06-15 12:10] LABS: INR 1.1 (0.9-1.15); Partial Thromboplastin Time 29.6 sec (23.6-33.0)
[2021-06-15] MEDS ORDERED: ATROPINE SULF 1 MG/10ml SYR IV PRN (12:15)
[2021-06-15] MEDS: IPRATROPIUM BROM 0.5 MG/2.5ML INH SOL NEB SCH ×4 (13:29→22:05)
[2021-06-15 14:42] VITALS: BP 134/78
[2021-06-15 15:56] VITALS: BP 111/52
[2021-06-15] MEDS: FUROSEMIDE 20 MG/2 ML VIAL IV SCH (17:37)
[2021-06-15] MEDS: BUDESONIDE (INHALATION) 0.5 MG/2 ML NEB NEB SCH (18:32)
[2021-06-15] MEDS ORDERED: ASPI-543 PO (19:31)
[2021-06-15] MEDS ORDERED: ALOG1TAB5 PO (19:31)
[2021-06-15] MEDS ORDERED: INSU300I SC (19:31)
[2021-06-15] MEDS ORDERED: GABA300C10 PO (19:31)
[2021-06-15] MEDS: methylPREDNISolone SOD SUCC 40 MG/ML VL IV SCH (21:16)
[2021-06-15] MEDS: POTASSIUM CHL 20 Meq TABLET PO SCH (21:17)
[2021-06-15] MEDS: ATORVASTATIN 20 MG TAB PO SCH (21:18)
[2021-06-15 22:00] VITALS: BP 103/43
[2021-06-16] MEDS: IPRATROPIUM BROM 0.5 MG/2.5ML INH SOL NEB SCH ×6 (01:54→22:06)
[2021-06-16] MEDS: HYDROcodone-ACET 5/325MG TAB PO PRN ×2 (02:40→17:37)
[2021-06-16 05:00] VITALS: BP 108/49
[2021-06-16] MEDS: methylPREDNISolone SOD SUCC 40 MG/ML VL IV SCH (05:53)
[2021-06-16] MEDS: FUROSEMIDE 20 MG/2 ML VIAL IV SCH (05:54)
[2021-06-16] MEDS: ACCU-CHEK COMFORT CURVE STRIP VI SCH ×4 (06:05→21:45)
[2021-06-16] MEDS: InsuLIN REG 1unit/0.01ml Soln (100units/ml) SC SCH ×4 (06:07→21:46)
[2021-06-16 06:29] LABS: Basophils # (auto) 0 10 ^3/uL (0-0.2); Eosinophils # (auto) 0 10 ^3/uL (0-0.8); Hematocrit 42.3 % (41.0-53.0); Hemoglobin 14.6 g/dL (13.5-17.5); Lymphocytes # (auto) 0.5 10 ^3/uL (0.4-5.4); Lymphocytes % (auto) 5.7 % (10.0-50.0); Mean Corpuscular Hemoglobin 30.9 pg (28.0-32.0); Mean Corpuscular Hgb Conc. 34.5 g/dL (32.0-36.0); Mean Corpuscular Volume 89.5 fL (80.0-100.0); Monocytes # (auto) 0.2 10 ^3/uL (0-1.3); Monocytes % (auto) 1.7 % (0.0-12.0); Neutrophils # (auto) 8.3 10 ^3/uL (1.6-8.6); Neutrophils % (auto) 92.6 % (37.0-80.0); Nucleated Red Blood Cells % 0.1 %; Red Blood Cells 4.73 10^6/uL (4.5-5.90); Red Cell Distribution Width 13.9 % (11.8-14.3); White Blood Cell 8.9 10^3/uL (4.4-10.8)
[2021-06-16] MEDS: BUDESONIDE (INHALATION) 0.5 MG/2 ML NEB NEB SCH ×2 (06:31→19:04)
[2021-06-16 06:44] LABS: INR 1.12 (0.9-1.15); Partial Thromboplastin Time 28.8 sec (23.6-33.0)
[2021-06-16 06:48] LABS: Albumin 3.6 g/dL (3.4-5.0); BUN/Creatinine Ratio 20.8; Bilirubin, Total 0.6 mg/dL (0.2-1.0); CRP High Sensitivity 0.37 mg/dL (< 0.3); Calcium 9.8 mg/dL (8.5-10.1); Phosphorus 2.4 mg/dL (2.5-4.90); Total Protein 7.3 g/dL (6.4-8.2); Uric Acid 6.7 mg/dL (3.5-7.2)
[2021-06-16 07:02] LABS: Magnesium 2.2 mg/dL (1.6-2.6); Potassium 4.5 mmol/L (3.5-5.1)
[2021-06-16 08:00] VITALS: BP 128/62
[2021-06-16] MEDS: PANTOPRAZOLE 40 MG/10 ML VIAL INJ IV SCH (09:23)
[2021-06-16] MEDS: levoFLOXacin 750MG 150 ML IV SCH (09:23)
[2021-06-16] MEDS: POTASSIUM CHL 20 Meq TABLET PO SCH (09:24)
[2021-06-16 09:47] VITALS: BP 148/77
[2021-06-16] MEDS ORDERED: ASPirin 81 mg TAB PO SCH (10:00)
[2021-06-16] MEDS ORDERED: ENOXAPARIN SOD 40 MG/0.4 ML SYRINGE SC SCH (10:00)
[2021-06-16] MEDS ORDERED: BENAZEPRIL HCL 10 MG TAB PO SCH (10:00)
[2021-06-16] MEDS ORDERED: MORPHINE SULFATE INJECTION 2 MG/ML SYRG IV PRN (11:00)
[2021-06-16 12:00] VITALS: BP 120/55
[2021-06-16] MEDS: SODIUM CHLORIDE 0.9% 1,000 ML IV SCH (13:38)
[2021-06-16] MEDS: metroNIDAZOLE 500MG/100ML 100 ML IV SCH ×2 (14:00→21:45)
[2021-06-16 16:00] VITALS: BP 124/58
[2021-06-16] MEDS: HYDROmorphone HCL 2 MG/ML VL IV PRN (20:24)
[2021-06-16] MEDS: ATORVASTATIN 20 MG TAB PO SCH (21:45)
[2021-06-16] MEDS: MONTELUKAST SODIUM 10 MG TAB PO SCH (21:45)
[2021-06-16 22:00] VITALS: BP 138/68
[2021-06-17] MEDS: IPRATROPIUM BROM 0.5 MG/2.5ML INH SOL NEB SCH ×7 (02:07→22:00)
[2021-06-17] MEDS: SODIUM CHLORIDE 0.9% 1,000 ML IV SCH ×2 (04:26→20:46)
[2021-06-17 05:00] VITALS: BP 132/69
[2021-06-17] MEDS: metroNIDAZOLE 500MG/100ML 100 ML IV SCH ×3 (05:53→21:25)
[2021-06-17] MEDS: ACCU-CHEK COMFORT CURVE STRIP VI SCH ×4 (06:23→21:26)
[2021-06-17] MEDS: InsuLIN REG 1unit/0.01ml Soln (100units/ml) SC SCH ×4 (06:24→21:20)
[2021-06-17 06:41] LABS: Urine Bacteria NONE SEEN /hpf (None Seen); Urine Blood Negative /uL (Negative); Urine Specific Gravity 1.019 (1.001-1.035); Urine WBC 2 /hpf (0 - 3)
[2021-06-17 06:42] LABS: Alcohol, Urine < 3.0 mg/dL (0-10); Amphetamine Screen, Urine NEGATIVE (NEGATIVE); Barbiturate Scree,Urine NEGATIVE (NEGATIVE); Benzodiazephine Screen, Urine NEGATIVE (NEGATIVE); Cannabinoid Screen, Urine NEGATIVE (NEGATIVE); Cocaine Screen, Urine NEGATIVE (NEGATIVE); Opiate Scree,Urine POSITIVE (NEGATIVE); Phencyclidine Screen, Urine NEGATIVE (NEGATIVE)
[2021-06-17] MEDS: BUDESONIDE (INHALATION) 0.5 MG/2 ML NEB NEB SCH ×2 (07:05→18:13)
[2021-06-17 09:00] VITALS: BP 132/64
[2021-06-17] MEDS: PANTOPRAZOLE 40 MG/10 ML VIAL INJ IV SCH (10:18)
[2021-06-17] MEDS: levoFLOXacin 750MG 150 ML IV SCH ×2 (10:19→11:28)
[2021-06-17 13:00] VITALS: BP 133/68
[2021-06-17] MEDS ORDERED: GLYCOPYRROLATE 0.2 MG/ML 1ML VIAL ONE (14:49)
[2021-06-17] MEDS ORDERED: ONDANSETRON HCL 4 MG/2 ML VIAL ONE (14:49)
[2021-06-17] MEDS ORDERED: NEOSTIGMINE 1 MG/ML INJ (10mg/10ML VIAL) ONE (14:49)
[2021-06-17] MEDS ORDERED: fentaNYL CITRATE 100 MCG/2 ML VL ONE (14:49)
[2021-06-17] MEDS ORDERED: ROCURONIUM 10MG/ML 10ML VIAL IV ONE (14:49)
[2021-06-17] MEDS ORDERED: SODIUM CHLORIDE LOCK 10 ML ONE (14:49)
[2021-06-17] MEDS ORDERED: MIDAZOLAM HCL 2MG/2ML 2ml VIAL (1mg/ml) ONE (14:49)
[2021-06-17] MEDS ORDERED: ETOMIDATE (2MG/ML) 20ML VIAL IV ONE (14:49)
[2021-06-17] MEDS ORDERED: PROPOFOL 10 MG/ML 20 ML IV ONE (15:00)
[2021-06-17] MEDS ORDERED: SUCCINYLCHOLINE CHLORIDE 20 MG/ML 10ML VIAL IV ONE (15:00)
[2021-06-17] MEDS: BUPIVACAINE W/ EPINEPH 0.25% INJ 50ML MDV ONE ×2 (15:06→15:50)
[2021-06-17] MEDS ORDERED: fentaNYL CITRATE 100 MCG/2 ML VL IV PRN (16:30)
[2021-06-17] MEDS ORDERED: METOCLOPRAMIDE HCL 5MG/ml INJ 2ml VIAL IV PRN (16:30)
[2021-06-17] MEDS ORDERED: ACCU-CHEK COMFORT CURVE STRIP VI ONE (16:30)
[2021-06-17] MEDS ORDERED: hydrALAZINE HCL 20 MG/ML VL IV PRN (16:30)
[2021-06-17] MEDS ORDERED: MORPHINE SULFATE 4 MG/ML SYR/VIAL IV PRN (16:30)
[2021-06-17] MEDS: HYDROmorphone HCL 2 MG/ML VL IV PRN ×4 (16:42→17:51)
[2021-06-17] MEDS: ATORVASTATIN 20 MG TAB PO SCH (21:25)
[2021-06-17] MEDS: MONTELUKAST SODIUM 10 MG TAB PO SCH (21:26)
[2021-06-17 22:00] VITALS: BP 128/57
[2021-06-18] MEDS: IPRATROPIUM BROM 0.5 MG/2.5ML INH SOL NEB SCH ×3 (02:00→10:09)
[2021-06-18] MEDS: HYDROmorphone HCL 2 MG/ML VL IV PRN (04:32)
[2021-06-18 05:00] VITALS: BP 135/67
[2021-06-18 05:24] LABS: Basophils # (auto) 0 10 ^3/uL (0-0.2); Basophils % (auto) 0.1 % (0.0-2.0); Eosinophils # (auto) 0 10 ^3/uL (0-0.8); Eosinophils % (auto) 0.1 % (0.0-7.0); Hemoglobin 14.1 g/dL (13.5-17.5); Lymphocytes # (auto) 0.5 10 ^3/uL (0.4-5.4); Mean Corpuscular Hemoglobin 30.9 pg (28.0-32.0); Mean Corpuscular Hgb Conc. 34.4 g/dL (32.0-36.0); Mean Corpuscular Volume 89.7 fL (80.0-100.0); Monocytes # (auto) 0.3 10 ^3/uL (0-1.3); Neutrophils # (auto) 6.9 10 ^3/uL (1.6-8.6); Neutrophils % (auto) 89.8 % (37.0-80.0); Red Blood Cells 4.57 10^6/uL (4.5-5.90); Red Cell Distribution Width 13.5 % (11.8-14.3); White Blood Cell 7.7 10^3/uL (4.4-10.8)
[2021-06-18] MEDS: metroNIDAZOLE 500MG/100ML 100 ML IV SCH ×2 (05:30→14:00)
[2021-06-18 05:33] LABS: Potassium 4.7 mmol/L (3.5-5.1)
[2021-06-18 05:38] LABS: Albumin 3.4 g/dL (3.4-5.0); BUN/Creatinine Ratio 18.2; Bilirubin, Total 0.5 mg/dL (0.2-1.0); Calcium 9.2 mg/dL (8.5-10.1)
[2021-06-18 05:47] LABS: Total Protein 6.5 g/dL (6.4-8.2)
[2021-06-18] MEDS: ACCU-CHEK COMFORT CURVE STRIP VI SCH ×3 (06:18→17:00)
[2021-06-18] MEDS: InsuLIN REG 1unit/0.01ml Soln (100units/ml) SC SCH ×3 (06:19→17:00)
[2021-06-18 09:00] VITALS: BP 133/65
[2021-06-18] MEDS: BUDESONIDE (INHALATION) 0.5 MG/2 ML NEB NEB SCH (09:41)
[2021-06-18] MEDS: PANTOPRAZOLE 40 MG/10 ML VIAL INJ IV SCH (10:00)
[2021-06-18] MEDS: levoFLOXacin 750MG 150 ML IV SCH (10:00)
[2021-06-18 13:00] VITALS: BP 124/55
[2021-06-18 13:42] VITALS: BP 133/65
[2021-06-18 14:21] VITALS: BP 128/62
== END 2021-06-18 17:00 | disposition home or self-care (01) | DRG 418 ==
LOC: ER 05:09 → TELE 10:45 → TELE-CENTR 13:16
PROVIDERS: ADMIT Hospitalist; ATTEND Internal Medicine
PROC: 5A09357 Assistance with Respiratory Ventilation, Less than 24 Consecutive Hours, Continuous Positive Airway Pressure (ICD-10-PCS; 2021-06-17)
PROC: 5A09357 Assistance with Respiratory Ventilation, Less than 24 Consecutive Hours, Continuous Positive Airway Pressure (ICD-10-PCS; 2021-06-17)
PROC: 0FT44ZZ Resection of Gallbladder, Percutaneous Endoscopic Approach (ICD-10-PCS; principal; 2021-06-17 15:07)
DX: K80.00 Calculus of gallbladder with acute cholecystitis without obstruction (principal); J44.1 Chronic obstructive pulmonary disease with (acute) exacerbation; N39.0 Urinary tract infection, site not specified; E11.9 Type 2 diabetes mellitus without complications; E66.01 Morbid (severe) obesity due to excess calories; E78.5 Hyperlipidemia, unspecified; E88.09 Other disorders of plasma-protein metabolism, not elsewhere classified; F17.200 Nicotine dependence, unspecified, uncomplicated; F32.A Depression, unspecified; F41.9 Anxiety disorder, unspecified; G89.4 Chronic pain syndrome; I10 Essential (primary) hypertension; K57.50 Diverticulosis of both small and large intestine without perforation or abscess without bleeding; K76.0 Fatty (change of) liver, not elsewhere classified; N31.2 Flaccid neuropathic bladder, not elsewhere classified; N20.0 Calculus of kidney; R00.1 Bradycardia, unspecified; Z20.822 Contact with and (suspected) exposure to COVID-19; Z79.51 Long term (current) use of inhaled steroids; Z87.442 Personal history of urinary calculi; Z68.36 Body mass index [BMI] 36.0-36.9, adult
CPT/HCPCS: 36415; 71045; 74176; 80053; 80061; 80307; 81001; 82550; 82962; 83036; 83615; 83690; 83735; 83880; 84100; 84156; 84443; 84484; 84550; 85025; 85379; 85610; 85730; 86141; 86850; 86900; 86901; 87040; 87086; 93005; 93017; 94640; 94660; 96365; 96375; C9113; G0378; J0330; J1815; J1885; J1956; J2250; J2405; J2704; J3490

== ENCOUNTER 2021-06-28 21:15 | Emergency (ER) | payer BC, MEDICARE ==
[~2021-06-28] VITALS: Ht 180.3 cm; Wt 113.4 kg
[~2021-06-28 21:15] MED LIST changes: +ALOG1TAB5 PO; +ASPI-543 PO; +INSU300I SC
[2021-06-28 21:17] VITALS: BP 120/52
== END 2021-06-28 23:21 | disposition left against medical advice (07) ==
LOC: ER 21:15
DX: R04.0 Epistaxis (principal); Z53.21 Procedure and treatment not carried out due to patient leaving prior to being seen by health care provider

== ENCOUNTER 2021-10-12 07:38 | Inpatient (IN) | payer MEDICARE, BC ==
[~2021-10-12] VITALS: Ht 182.9 cm; Wt 123.9 kg
[~2021-10-12 07:38] MED LIST changes: -ASPI81CH59 PO; -AZIT500T66 PO; -BUDE0.253 IN; -FURO1TAB31 PO; +MIRA25TA OR; -PANT40T PO; -POTA-220 PO; -[UNRECOGNIZED DRUG - CODE] PO
[2021-10-12] MEDS ORDERED: CELECOXIB 100 MG CAP PO ONE ×2 (08:30→12:30)
[2021-10-12] MEDS ORDERED: ACETAMINOPHEN IV 1000 MG/100ML (10MG/ML) IV ONE ×2 (08:30→12:30)
[2021-10-12] MEDS ORDERED: PREGABALIN CAPSULE 75 MG CAP PO ONE ×2 (08:30→12:30)
[2021-10-12] MEDS ORDERED: ACETAMINOPHEN IV 100 ML IV ONE (08:33)
[2021-10-12] MEDS ORDERED: CELECOXIB 100 MG CAP ONE (08:33)
[2021-10-12] MEDS ORDERED: ceFAZolin 1GM/50ML 100 ML IV ONE (08:33)
[2021-10-12] MEDS ORDERED: MIDAZOLAM HCL 2MG/2ML 2ml VIAL (1mg/ml) ONE (09:35)
[2021-10-12] MEDS ORDERED: PROPOFOL 10 MG/ML 20 ML IV ONE ×2 (09:35→09:36)
[2021-10-12] MEDS ORDERED: ePHEDrine SULFATE 50 MG/ML AMP ONE (09:35)
[2021-10-12] MEDS ORDERED: GLYCOPYRROLATE 0.2 MG/ML 1ML VIAL ONE (09:35)
[2021-10-12] MEDS ORDERED: ONDANSETRON HCL 4 MG/2 ML VIAL ONE (09:35)
[2021-10-12] MEDS ORDERED: MORPHINE SULF PF 5 MG/10 ML VIAL ONE (09:35)
[2021-10-12] MEDS ORDERED: fentaNYL CITRATE 100 MCG/2 ML VL ONE (09:35)
[2021-10-12] MEDS ORDERED: BUPIVACAINE/DEXTROSE MPF 0.75% 2 ML AMP IT ONE (09:36)
[2021-10-12] MEDS ORDERED: KETAMINE 50mg/ML 10ml Vial (500mg/10ml) IV ONE (10:18)
[2021-10-12] MEDS ORDERED: BUPIVACAINE 0.25% INJ 50ML VIAL ONE (10:35)
[2021-10-12] MEDS ORDERED: TRANEXAMIC ACID 20 ML ONE (10:35)
[2021-10-12] MEDS ORDERED: KETOROLAC TROMETH 30 MG/ML 1ML VIAL ONE (10:37)
[2021-10-12] MEDS ORDERED: VANCOMYCIN HCL 1000 MG VL ONE (10:37)
[2021-10-12] MEDS ORDERED: HYDROmorphone HCL 2 MG/ML VL/or syr IV PRN (13:00)
[2021-10-12] MEDS ORDERED: BISACODYL 5 MG EC TAB PO PRN (13:00)
[2021-10-12] MEDS ORDERED: NITROGLYCERIN 0.4 MG SL TAB SL PRN (13:00)
[2021-10-12] MEDS ORDERED: MORPHINE SULFATE INJ 2 MG/ml SYRG IV PRN (13:00)
[2021-10-12] MEDS: ceFAZolin 1GM/50ML 50 ML IV SCH ×2 (13:00→18:59)
[2021-10-12] MEDS: LACTATED RINGER'S 1,000 ML IV SCH ×2 (13:00→23:00)
[2021-10-12] MEDS ORDERED: ALBUTEROL SULF HFA 90MCG INH 200DOSE IN PRN (13:00)
[2021-10-12] MEDS ORDERED: ONDANSETRON HCL 4 MG/2 ML VIAL IV PRN ×2 (13:00→13:45)
[2021-10-12] MEDS ORDERED: diphenhdrAMINE HCL 50 MG/1 ML VL IV PRN (13:45)
[2021-10-12] MEDS ORDERED: DexAMETHasone SOD PHOS 10MG/1ML VIAL INJ IV PRN (13:45)
[2021-10-12] MEDS ORDERED: NALOXONE HCL 0.4 MG/ML VIAL IV PRN (13:45)
[2021-10-12] MEDS ORDERED: ACCU-CHEK COMFORT CURVE STRIP VI ONE (13:45)
[2021-10-12] MEDS ORDERED: KETOROLAC TROMETH 30 MG/ML 1ML VIAL IV ONE (13:45)
[2021-10-12] MEDS: SODIUM CHLOR 0.9% PF (SALINE LOCK) 10ML VIAL/SYR IV SCH ×2 (14:00→22:24)
[2021-10-12 17:23] VITALS: BP 122/56
[2021-10-12] MEDS: ALBUTEROL SULF 2.5 MG/0.5ML(0.5%) NEB SOLN NEB SCH (19:15)
[2021-10-12] MEDS: KETOROLAC TROMETH 30 MG/ML 1ML VIAL IV PRN (20:50)
[2021-10-12 22:00] VITALS: BP 109/37
[2021-10-12] MEDS: Tiotropium Bromide Monohydrate (Spiriva Handihaler) 18 MCG IN SCH (22:00)
[2021-10-12] MEDS: GABAPENTIN 300 MG CAP PO SCH (22:25)
[2021-10-12] MEDS: DOCUSATE SOD 100 MG CAP PO SCH (22:27)
[2021-10-13] MEDS: ALBUTEROL SULF 2.5 MG/0.5ML(0.5%) NEB SOLN NEB SCH ×4 (00:16→18:13)
[2021-10-13 00:39] VITALS: BP 109/37
[2021-10-13] MEDS: ceFAZolin 1GM/50ML 50 ML IV SCH ×2 (01:46→06:14)
[2021-10-13 05:00] VITALS: BP 113/42
[2021-10-13 05:06] LABS: Hematocrit 36.4 % (41.0-53.0); Hemoglobin 12.3 g/dL (13.5-17.5)
[2021-10-13 05:30] LABS: Calcium 8.5 mg/dL (8.5-10.1); Potassium 4.6 mmol/L (3.5-5.1)
[2021-10-13 05:36] LABS: BUN/Creatinine Ratio 20.6; Bilirubin, Total 0.6 mg/dL (0.2-1.0); Total Protein 5.8 g/dL (6.4-8.2)
[2021-10-13] MEDS: SODIUM CHLOR 0.9% PF (SALINE LOCK) 10ML VIAL/SYR IV SCH ×3 (06:13→21:43)
[2021-10-13] MEDS: KETOROLAC TROMETH 30 MG/ML 1ML VIAL IV PRN ×2 (06:32→15:47)
[2021-10-13 08:44] VITALS: BP 111/52
[2021-10-13] MEDS ORDERED: ALOGLIPTIN PO SCH (10:00)
[2021-10-13] MEDS: Tiotropium Bromide Monohydrate (Spiriva Handihaler) 18 MCG IN SCH (10:00)
[2021-10-13] MEDS ORDERED: INSULIN LANTUS (GLARGINE) 1 /0.01ml (100units/ml) SC SCH (10:00)
[2021-10-13] MEDS ORDERED: PIOGLITAZONE PO SCH (10:00)
[2021-10-13] MEDS ORDERED: INSULIN GLARGINE SC SCH (10:00)
[2021-10-13] MEDS: DOCUSATE SOD 100 MG CAP PO SCH ×2 (10:01→21:32)
[2021-10-13] MEDS: ENOXAPARIN SOD 40 MG/0.4 ML SYRINGE SC SCH (10:01)
[2021-10-13] MEDS: GABAPENTIN 300 MG CAP PO SCH ×2 (10:01→21:32)
[2021-10-13] MEDS ORDERED: DEXTROSE (50%) 50ML SYRG IV PRN (11:15)
[2021-10-13] MEDS: IPRATROPIUM BROM 0.5 MG/2.5ML INH SOL NEB SCH ×2 (12:06→18:13)
[2021-10-13 12:41] VITALS: BP 111/75
[2021-10-13] MEDS: HYDROmorphone HCL 2 MG/ML VL/or syr IV PRN ×2 (12:57→15:59)
[2021-10-13] MEDS: ACCU-CHEK COMFORT CURVE STRIP VI SCH ×3 (12:57→22:29)
[2021-10-13] MEDS: InsuLIN REG 1unit/0.01ml Soln (100units/ml) SC SCH ×3 (12:58→21:44)
[2021-10-13 16:47] VITALS: BP 120/64
[2021-10-13] MEDS: ACETAMINOPHEN 325 MG TAB PO PRN (19:51)
[2021-10-13 22:00] VITALS: BP 109/42
[2021-10-14] MEDS: IPRATROPIUM BROM 0.5 MG/2.5ML INH SOL NEB SCH ×4 (00:16→18:10)
[2021-10-14] MEDS: ALBUTEROL SULF 2.5 MG/0.5ML(0.5%) NEB SOLN NEB SCH ×4 (00:16→18:10)
[2021-10-14 05:00] VITALS: BP 111/45
[2021-10-14] MEDS: OXYCODONE W/ ACETAMINOPHEN 5/325MG TABLET PO PRN ×2 (05:10→12:22)
[2021-10-14] MEDS: SODIUM CHLOR 0.9% PF (SALINE LOCK) 10ML VIAL/SYR IV SCH ×3 (06:00→21:37)
[2021-10-14 06:22] LABS: Basophils # (auto) 0 10 ^3/uL (0-0.2); Basophils % (auto) 0.3 % (0.0-2.0); Eosinophils # (auto) 0.1 10 ^3/uL (0-0.8); Eosinophils % (auto) 1.5 % (0.0-7.0); Hematocrit 33.7 % (41.0-53.0); Hemoglobin 11.3 g/dL (13.5-17.5); Lymphocytes # (auto) 0.5 10 ^3/uL (0.4-5.4); Lymphocytes % (auto) 6.2 % (10.0-50.0); Mean Corpuscular Hemoglobin 30.6 pg (28.0-32.0); Mean Corpuscular Hgb Conc. 33.5 g/dL (32.0-36.0); Mean Corpuscular Volume 91.2 fL (80.0-100.0); Monocytes # (auto) 0.7 10 ^3/uL (0-1.3); Monocytes % (auto) 9.1 % (0.0-12.0); Neutrophils # (auto) 6.2 10 ^3/uL (1.6-8.6); Neutrophils % (auto) 82.9 % (37.0-80.0); Red Blood Cells 3.69 10^6/uL (4.5-5.90); Red Cell Distribution Width 14.3 % (11.8-14.3); White Blood Cell 7.5 10^3/uL (4.4-10.8)
[2021-10-14 06:36] LABS: BUN/Creatinine Ratio 23.1; Calcium 8.7 mg/dL (8.5-10.1); Potassium 4.4 mmol/L (3.5-5.1)
[2021-10-14] MEDS: InsuLIN REG 1unit/0.01ml Soln (100units/ml) SC SCH ×4 (07:00→21:37)
[2021-10-14 09:00] VITALS: BP 114/53
[2021-10-14] MEDS: DOCUSATE SOD 100 MG CAP PO SCH ×2 (10:49→21:33)
[2021-10-14] MEDS: ENOXAPARIN SOD 40 MG/0.4 ML SYRINGE SC SCH (10:50)
[2021-10-14] MEDS: GABAPENTIN 300 MG CAP PO SCH ×2 (10:50→21:33)
[2021-10-14] MEDS: ACCU-CHEK COMFORT CURVE STRIP VI SCH ×4 (10:53→21:37)
[2021-10-14 13:00] VITALS: BP 134/47
[2021-10-14 17:00] VITALS: BP 129/42
[2021-10-14] MEDS: ACETAMINOPHEN 325 MG TAB PO PRN (19:59)
[2021-10-14 22:00] VITALS: BP 131/48
[2021-10-15] MEDS: OXYCODONE W/ ACETAMINOPHEN 5/325MG TABLET PO PRN (00:10)
[2021-10-15 05:00] VITALS: BP 119/79
[2021-10-15] MEDS: SODIUM CHLOR 0.9% PF (SALINE LOCK) 10ML VIAL/SYR IV SCH ×2 (05:45→15:00)
[2021-10-15] MEDS: InsuLIN REG 1unit/0.01ml Soln (100units/ml) SC SCH ×2 (05:46→12:03)
[2021-10-15] MEDS: ACCU-CHEK COMFORT CURVE STRIP VI SCH ×2 (05:46→11:33)
[2021-10-15] MEDS: IPRATROPIUM BROM 0.5 MG/2.5ML INH SOL NEB SCH ×2 (06:35→12:01)
[2021-10-15] MEDS: ALBUTEROL SULF 2.5 MG/0.5ML(0.5%) NEB SOLN NEB SCH ×2 (06:36→12:01)
[2021-10-15 06:38] LABS: Hematocrit 35.9 % (41.0-53.0); Hemoglobin 11.6 g/dL (13.5-17.5)
[2021-10-15 09:00] VITALS: BP 131/51
[2021-10-15] MEDS ORDERED: INSULIN LANTUS (GLARGINE) 1 /0.01ml (100units/ml) SC SCH (10:00)
[2021-10-15] MEDS: DOCUSATE SOD 100 MG CAP PO SCH (10:18)
[2021-10-15] MEDS: GABAPENTIN 300 MG CAP PO SCH (10:18)
[2021-10-15] MEDS: ENOXAPARIN SOD 40 MG/0.4 ML SYRINGE SC SCH (10:30)
[2021-10-15 13:00] VITALS: BP 131/47
[2021-10-15] MEDS ORDERED: GABAPENTIN 300 MG CAP PO SCH (22:00)
== END 2021-10-15 17:30 | DRG 470 ==
LOC: SUR 07:38 → TELE 12:58 → TELE-CENTR 14:55 → CENTRAL 10-15 00:35
PROVIDERS: ADMIT Orthopaedic Surgery Adult Reconstructive Orthopaedic Surgery; ATTEND Internal Medicine
PROC: 8E0Y0CZ Robotic Assisted Procedure of Lower Extremity, Open Approach (ICD-10-PCS; 2021-10-12)
PROC: 0SRB0JZ Replacement of Left Hip Joint with Synthetic Substitute, Open Approach (ICD-10-PCS; principal; 2021-10-13)
DX: M16.12 Unilateral primary osteoarthritis, left hip (principal); E66.01 Morbid (severe) obesity due to excess calories; G47.30 Sleep apnea, unspecified; G89.29 Other chronic pain; J44.9 Chronic obstructive pulmonary disease, unspecified; E11.42 Type 2 diabetes mellitus with diabetic polyneuropathy; Z20.822 Contact with and (suspected) exposure to COVID-19; Z68.37 Body mass index [BMI] 37.0-37.9, adult
CPT/HCPCS: 36415; 72170; 73501; 80048; 80053; 82962; 85014; 85018; 85025; 86850; 86900; 86901; 94640; 97110; 97116; 97163; 97530; C1776; G0378; J0131; J0690; J1815; J1885; J2250; J2405; J2704; J3490